=== PATIENT | female | born 2000 | race Caucasian/White ===

== ENCOUNTER 2024-05-15 08:25 | Outpatient (REF) | payer MEDICAID, SELFPAY ==
[2024-05-15 12:45] LABS: Anion Gap 12 (12-20); Blood Urea Nitrogen 12 mg/dL (9-16); Calcium 9.1 mg/dL (8.4-10.2); Carbon Dioxide 26 mmol/L (22-29); Chloride 104 mmol/L (96-108); Cholesterol 187 mg/dL (<200); Estimated Glomerular Filt Rate > 60; Glucose Random 80 mg/dL (60-115); HDL Cholesterol 46 mg/dL (>40); LDL Cholesterol Calculated 124 mg/dL (<100); Potassium 3.2 mmol/L (3.3-5.1); Sodium 139 mmol/L (135-145); Triglycerides 86 mg/dL (<150)
[2024-05-15 12:47] LABS: Estimated Average Glucose 100 mg/dL; Hemoglobin A1c % 5.1 % (<6.0)
[2024-05-15 12:57] LABS: HBS Num1 0.67 mIU/mL (0-7.99); HBc Num1 0.16 S/CO (0.00-0.79); HBsAGNum1 0.32 S/CO (0.00-0.99); HIV AB/AG Nonreactive (Nonreactive); HIV Num 1 0.06 S/CO (0.00-0.99); Hepatitis B Core Antibody Nonreactive (Nonreactive); Hepatitis B Surface Antigen Negative (Negative); ~HepC Num1 0.18 S/CO (0.00-0.79); ~Hepatitis B Surface Antibody NONREACTIVE (Nonreactive); ~Hepatitis C Antibody Nonreactive (Nonreactive)
[2024-05-15 13:17] LABS: TSH reflex Free T4 1.31 uIU/mL (0.32-4.0)
== END 2024-05-15 08:26 | disposition home or self-care (01) ==
LOC: HO.HHCL 08:25
PROVIDERS: Visit Provider Nurse Practitioner
DX: E66.9 Obesity, unspecified (principal); Z13.9 Encounter for screening, unspecified
CPT/HCPCS: 36415; 80048; 80061; 83036; 84443; 86704; 86706; 86803; 87340; 87389

== ENCOUNTER 2024-08-17 17:24 | Emergency (ER) | payer MEDICAID, SELFPAY ==
[2024-08-17 18:11] VITALS: BP 140/84; PULSE 84; RESP 16; TEMP 36.8; O2SAT 100; BMI 43.0
--- NOTE | 2024-08-17 18:22 | ED_ITS ---
HPI - General Adult General Chief complaint: Skin/Abscess/Foreign Body Stated complaint: rt foot swelling Time Seen by Provider: 08/17/24 18:16 Source: patient Limitations: no limitations History of Present Illness ED Provider: Walter Mcclendon PA-C HPI narrative: 23 yold female with no pmh presents to the ED for right middle toe redness that occurred after being bitten by the insect with redness going on top of foot. She states rash is itchy. patient denies any fever, chills, calf pain, chest pain, shortness of breath, pus discharge, foul odor, or orther rash Related Data Previous Rx's ?Medication ?Instructions ?Recorded cephalexin 500 mg capsule 500 mg PO QID 7 days #28 caps 08/17/24 diphenhydramine HCl 25 mg capsule 25 mg PO TID PRN itching 5 days 08/17/24 (Benadryl) #15 caps famotidine 40 mg tablet (Pepcid) 40 mg PO DAILY 5 days #5 tabs 08/17/24 prednisone 20 mg tablet 40 mg (2 x 20 mg) PO DAILY 5 days 08/17/24 #10 tabs Allergies Allergy/AdvReac Type Severity Reaction Status Date / Time Penicillins [PCN] Allergy Mild RASH Verified 08/17/24 18:14 Review of Systems 2 Review of Systems: right middle toe redness to top of right foot. Yes all other systems are reviewed and are negative PMFSH Social History Social History Advance Directives: No Advance Directives Information Provided: No Do you have a plan to hurt others: No Plan Physical Exam ED Vital Signs: Vital Signs - 24 hr 08/17/24 18:11 08/17/24 18:36 Temperature 98.3 F 98.3 F Pulse Rate 84 84 Respiratory Rate 16 16 Blood Pressure 140/84 H 140/84 H Pulse Oximetry 100 100 Oxygen Delivery Method Room Air Room Air BMI result Body Mass Index 43.0 Const General: cooperative, healthy appearing, comfortable, no acute distress, well developed, alert, awake and Physically active Orientation/consciousness: patient oriented x3 HENMT Head: Yes normal to inspection, Yes No palpable skull fracture present, Yes normocephalic and Yes atraumatic Eyes General: appearance normal, both eyes and all related structures Neck Neck: Yes normal visual inspection, Yes full ROM, Yes no lymphadenopathy, Yes no meningeal signs, Yes trachea midline, Yes supple, No anterior neck swelling and No tender Chest Chest palpation & inspection: normal inspection of the chest and normal palpation of entire chest wall Resp Effort & Inspection: normal respiratory effort and able to speak in complete sentences Auscultation: clear to auscultation bilaterally Cardio Jugular venous distension: no JVD Heart sounds: S1 normal heart sound present and S2 normal heart sound present GI Inspection: Yes normal to inspection Palpation (GI): Soft to palpation, not firm, nontender, no guarding and not rigid General: Yes no CVA tenderness Back/Spine/Pelvis Back: no CVA tenderness and No back tenderness Skin General skin exam: no rashes or lesions noted, elasticity normal and turgor normal Neuro General: patient oriented x3, gait normal, tone normal, moves all extremities, Normal light touch and pain sensation, no meningeal signs, no focal motor deficits, CN's II-XI intact bilaterally and normal sensation to monofilament Extrem General: Yes normal to inspection and Yes full ROM Ankle/foot/toe images: 2 1. positive for redness, tenderness, warmth and opening with slight oozing. Rest of extremity. Motor, neuro, and vascular exam is intact. Psych Appearance: grossly normal, well kempt and not disheveled Medical Decision Making Medical Decision Making MDM Narrative: 23-year-old female presents to the ED for right middle toe top of foot redness, itchiness, slight discomfort after being bitten by a bug while sleeping. Rest of extremity normal. Patient denies any leg swelling, calf pain, chest pain, shortness of breath, recent long travel, recent surgery. Physical exam positive for redness from middle toe and small portion of right anterior foot. Positive for bite kimmy/opening. Negative for signs of DVT, osteomylelitits, compartment syndrome, fracture, anyphylaxis, comparment sydnrome, or arterial occlusion. Differential Diagnosis Differential Diagnoses: The differential diagnosis associated with the presentation includes (cellulitits, allergic reaction, contact dermatitis) Admission/Observation Consideration of admission/observation: Escalation of care including admission/observation considered Independent Historian Clinical information obtained from an independent historian. History obtained from or confirmed by: Other (patient) External Record Review External record reviewed: Other (prior visits.) Prescription Management I considered prescription management with: Antibiotic Discharge Plan Discharge Clinical Impression: Insect bite Patient Disposition: Home, Self-Care Instructions: Insect Bite or Sting (ED) Additional Instructions: Return to the ED immediately for any worsening redness, swelling, pus discharge, foul odor, leg swelling, calf pain, chest pain, shortness of breath, fever, chills, swelling of lips, tongue of tongue, sensation of throat closing, or any other concerning symptoms. Prescriptions: New cephalexin 500 mg capsule 500 mg PO QID 7 Days Qty: 28 0RF prednisone 20 mg tablet 40 mg PO DAILY 5 Days Qty: 10 0RF diphenhydramine HCl [Benadryl] 25 mg capsule 25 mg PO TID PRN (Reason: itching) 5 Days Qty: 15 0RF Rx Instructions: side effect is drowsiness famotidine [Pepcid] 40 mg tablet 40 mg PO DAILY 5 Days Qty: 5 0RF Stand Alone Forms: Work/School Release Interventions: ED Discharge Assessment Last Done: 08/17/24 18:36 Discharge Date/Time: 08/17/24 18:38 Print Language: [place]
[2024-08-17 18:36] VITALS: BP 140/84; PULSE 84; RESP 16; TEMP 36.8; O2SAT 100
== END 2024-08-17 18:38 | disposition home or self-care (01) ==
PROVIDERS: Emergency Provider Internal Medicine
DX: R60.0 Localized edema (principal); M79.671 Pain in right foot
CPT/HCPCS: 99282; 99283

== ENCOUNTER 2025-08-01 10:06 | Outpatient (REF) | payer MEDICAID, SELFPAY ==
[2025-08-01 12:11] LABS: Hemoglobin A1C 121.0474 umol/L; Total Hemoglobin (HGBA1C) 3463.3405 umol/L
--- OUTSIDE RECORDS SUMMARY | 2025-08-01 12:17 | XMS_ITS | Encounter Summary ---
Author Organization [facility] Address [address] [place] [id number] Phone Care Team Providers Care Bundle Wrapper Name Role Phone Yanni Murphy MD Primary Care Provider Unavailabl e Encounter Details Date Type Department Care Team (Late st Contact Info) Description 03/12/2016 Documentation [facility] [place] [facility] [address] [place] [address] Family Medicine, Physician [address], [place] [id number] Social History Tobacco Use Types Packs/Day Years Used Date Smoking Tobacco: Never Assessed Comments Unknown Sex and Gender Information Value Date Recorded Sex Assigned at Not on file Legal Sex Female 4:45 PM EDT Gender Identity Not on file Sexual Orientation Not on file documented as of this encounter Plan of Treatment Not on file documented as of this encounter Visit Diagnoses Not on filedocumented in this encounter Care Teams Bundle Wrapper Relationship Specialty Start Date End Date Yanni Murphy MD PCP - General 07/02/17 12/31/22 documented as of this encounter
--- OUTSIDE RECORDS SUMMARY | 2025-08-01 12:17 | XMS_ITS | Encounter Summary ---
Author Organization [facility] Address [address] [place] [phone] Phone Care Team Providers Care Public Relations Sales Marketing Name Role Phone Yanni Murphy MD Primary Care Provider Unavailabl e Encounter Details Date Type Department Care Team (Late st Contact Info) Description 07/08/2017 Conversion Encounter [facility] - [address] [id number] Social History Tobacco Use Types Packs/Day Years Used Date Smoking Tobacco: Never Comments:Never smoker Comments Unknown Sex and Gender Information Value Date Recorded Sex Assigned at Not on file Legal Sex Female 4:45 PM EDT Gender Identity Not on file Sexual Orientation Not on file documented as of this encounter Plan of Treatment Not on file documented as of this encounter Visit Diagnoses Not on filedocumented in this encounter Care Teams Public Relations Sales Marketing Relationship Specialty Start Date End Date Yanni Murphy MD PCP - General 07/02/17 12/31/22 documented as of this encounter
--- OUTSIDE RECORDS SUMMARY | 2025-08-01 12:17 | XMS_ITS | Clinical Summary ---
Author Organization [employer] Address [address] [facility] [address] [place] [address] Care Team Providers Care Tooling Supervisor Name Role Phone Leeanna Wan MD Primary Care Provider [phone] Allergies Active Allergy Reactions Criticality Noted Date Comments Gramineae Pollens 03/16/2024 Penicillins 12/07/2017 Medications * This document contains information received from the source organization and may not represent a complete record from that organization. clobetasol (Temovate) 0.05 % creamIndications:R gloria Apply topically 2 times daily. Once acute flare has subsided use crisaborole for daily maintenance 15 g 2 024 Active Blood Pressure kitIndications:Krista vated BP without diagnosis of hypertension 1 Units Once per day. 1 kit 024 Active tacrolimus (Protopic) 0.1 % ointmentIndication s:Rash Apply topically 2 times daily. 30 g 3 Active levocetirizine (Xyzal) 5 MG tablet Take 1 tablet (5 mg) by mouth in the evening. 90 tablet 3 025 2025 Active fluticasone (Flonase) 50 MCG/ACT nasal sprayIndications:S easonal allergic rhinitis due to pollen SPRAY 1-2 SPRAYS DAILY INTO EACH NOSTRIL 16 g 11 Active busPIRone (Buspar) 5 MG tablet Take 1 tablet (5 mg) by mouth 3 times daily. 90 tablet Active norelgestromin-eth inyl estradiol (Ortho-Evra) 150-35 MCG/24HR Apply 1 patch each week for 3 weeks, then remove for 1 week. 9 patch 025 2025 Active fluticasone (Flonase) 50 MCG/ACT nasal sprayIndications:S easonal allergic rhinitis due to pollen SPRAY 1-2 SPRAYS DAILY INTO EACH NOSTRIL 16 g 11 024 2024 Discontinued(R eorder (will not trigger notification to Pharmacy)) busPIRone (Buspar) 5 MG tablet Take 5 mg by mouth 3 times daily. 2024 Discontinued(R eorder (will not trigger notification to Pharmacy)) levocetirizine (Xyzal) 5 MG tablet Take 1 tablet (5 mg) by mouth in the evening. 30 tablet 11 024 2024 Discontinued(R eorder (will not trigger notification to Pharmacy)) SUMAtriptan (Imitrex) 25 MG tabletIndications: Acute nonintractable headache, unspecified headache type Take 1 tablet (25 mg) by mouth 1 (one) time if needed for migraine for up to 18 doses. May repeat dose once in 2 hours if no relief. Do not exceed 2 doses in 24 hours. Take with naproxen 9 tablet 1 2024 Discontinued(T herapy completed) witch stephie-glycerin (Tucks) padIndications:Acu te gastroenteritis Apply topically if needed for irritation. 100 each 2024 Discontinued(T herapy completed) Vit-Fe Fumarate-FA ( Vitamin) 27-0.8 MG tabletIndications: Routine adult health maintenance TAKE 1 TABLET BY MOUTH EVERY DAY 30 tablet 2 2024 Discontinued(T herapy completed) tacrolimus (Protopic) 0.1 % ointmentIndication s:Rash APPLY TOPICALLY TWICE DAILY 30 g 1 2024 Discontinued(R eorder (will not trigger notification to Pharmacy)) hydrOXYzine HCl (Atarax) 10 MG tabletIndications: Anxiety Take 1 tablet (10 mg) by mouth if needed at bedtime for itching. May take additional pill during the day as needed 30 tablet 2 025 2024 Discontinued(T herapy completed) famotidine (Pepcid) 40 MG tablet TAKE 1 TABLET BY [facility] DAILY FOR 5 DAYS 024 2024 Discontinued(T herapy completed) Active Problems Problem Noted Date Diagnosed Date Acute nonintractable headache 09/20/2024 Assessment & Plan (09/20/2024 10:22 AM EDT): -suggestive of migraine headache; although it could also be due to elevated BP -trial sumatriptan and naproxen for abortive therapy -advised increased Increase fluid intake -Discussed migraines triggers and sleep hygiene, recommended 8-9 h of sleep per night. -headache red flags discussed: report to ED immediately if headache characteristics intensify within 5 mins of onset, if associated with intense nausea and vomiting or confusion -headache diary advised -follow-up in 1 mo or sooner if worsening, vomiting associated with headaches, not improving, problems or concerns Elevated BP without diagnosis of hypertension Assessment & Plan (09/20/2024 10:20 AM EDT): -BP remains elevated in clinic. Informed this may be contributing to her headaches -advised continuous home monitoring specifically at night and bring log to the unit for review -will discuss initiation of low dose diuretic during next visit if office and home readings persistently 130/80 mmHg -stressed the importance of low salt diet and routine daily exercise for BP management -follow-up 1 month Assessment & Plan (08/12/2024 7:46 AM EDT): -BP cuff ordered and log provided for home monitoring -low salt diet and daily physical activity encouraged -follow-up 1 month for BP check Assessment & Plan (06/15/2024 10:40 AM EDT): -advised continued daily monitoring an recording -encouraged low salt diet and daily physical activity -follow-up 2 month in person Rash 05/16/2024 Assessment & Plan (09/20/2024 10:12 AM EDT): -suggestive of eczema; responsive to clobetasol cream -trial maintenance with tacrolimus oint for optimal relief -advised monitoring for triggers and avoid them -maintain adequate moisture of the skin Assessment & Plan (08/12/2024 7:50 AM EDT): -suggestive of atopic dermatitis -trial clobetasol cream for immediate relief -advised monitoring for triggers and avoid them -maintain adequate moisture of the skin Assessment & Plan (06/15/2024 10:38 AM EDT): -advised keep affected areas dry and moisturized -encouraged stress management to decrease flares -trial crisaborole ointment for maintenance -refill for clobetasol provided -follow-up 2 months in person Obesity (BMI 30-39.9) 05/16/2024 Assessment & Plan (09/20/2024 10:12 AM EDT): -1 lb documented weight loss since last office visit 07/27/24 -diet and exercise recommendations reviewed and strongly encouraged -plan to discuss options desire for and options for weight management at next visit -consider nutrition referral Assessment & Plan (08/12/2024 7:46 AM EDT): -Healthy diet and exercise teaching completed: Eat a variety of fruit and vegetables, whole grains such as whole-wheat flour, bulgur (cracked wheat), oatmeal, and brown rice. Intake protein from beans, nuts, fish, and lean meats. Eat low-fat or fat- free dairy products. Limit highly processed foods such as hot dogs, sandwich meat, etc. Engage in minimum of 150 min of moderate intensity exercise weekly -labs ordered to assess for endocrine contribution and resulting metabolic effects Routine adult health maintenance 05/12/2024 Assessment & Plan (09/20/2024 10:12 AM EDT): Multivitamin refill provided per patient request Assessment & Plan (05/12/2024 8:35 AM EDT): -age appropriate screening and immunizations up to date (STI screening) -low cardiovascular risk -mental health screening negative -healthy social behaviors encouraged -anticipatory guidance reviewed: diet, exercise Anxiety 03/16/2024 Assessment & Plan (08/12/2024 7:52 AM EDT): -EMMANUEL-7 Total Score: 4 (07/27/2024 11:02 AM) -start hydroxyzine 10 mg nightly and as needed today televisit -advised on the benefits of engaging in gentle yoga practices, meditation, deep breathing and journaling along with physical activity to aid in symptom improvement -sleep hygiene reviewed Dyslipidemia 10/05/2018 Overview (03/16/2024): 10/04/18 LDL at 123, Chol, HDL wnl, nonfasting, diet changes, repeat in 6m-1yr Eczema 12/20/2017 Overview (03/16/2024): 09/30/17 cerave and vinegar, salt water soaks.Seen in derm Clinic 05/28/17 Clobetasol gel, Triamcinolone Encounters Date Type Department Care Team Description 08/01/2025 2:00 PM EDT Office Visit [facility] MED[facility] [address] [place] [phone] Leeanna Wan MD Screening examination for STI (Primary Dx); Dietary counseling; Exercise counseling; Class 2 obesity without serious comorbidity with body mass index (BMI) of 37.0 to 37.9 in adult, unspecified obesity type; Rash; Seasonal allergic rhinitis due to pollen 07/31/[address] [phone] Leeanna Wan MD Chart Prep 07/31/2025 Travel 06/20/[address] [phone] Leeanna Wan MD Lab Orders from Last 3 Months Immunizations Immunization Administration Dates Next Due DTaP / HiB / IPV 06/03/2003, 2,04/19/2002,02/14 DTaP / Hib 12/18/2005, 3,07/10/2002,04/19,02/14/2002 DTaP, 5 pertussis antigens 12/18/2005,,07/10/2002,04/19,02/14/2002 HPV 9-Valent 06/05/2015 HPV, Quadrivalent 06/05/2015,02/21/2014,12/22/19 14 Hep A, ped/adol, 2 dose 06/05/2015,12/22/2013 Hep B, Adolescent or Pediatric 07/10/2002,2001,2001 Hib (PRP-T) 06/03/2003, 2,04/19/2002,02/14 IPV 12/18/2005, 2,04/19/2002,02/14 Influenza injectable quadriv alent preservative free 10/04/2019,10/04/2018,09/30/2017,07/30,11/01/2013 Influenza, IIV3, injectable 08/12/2009,0 12/17/2005,09/15/2004,11/02 Influenza, Split (incl. allyssa fied surface antigen) 11/03/2012 Influenza, Unspecified 09/30/2017,2014,11/01/2013,11/03,09/11/2010,08/12/2009,12/17/2005 ,09/15/2004,11/02/2003 Influenza, live, intranasal 09/11/2010 Influenza, seasonal, injecta ble, preservative free 10/04/2019,10/04/2018 MMR 12/18/2005,12/28/2002 Meningococcal MCV4P ACYW-135 10/04/2018,06/05/20 15 Novel [id number], all formulations 12/27/2009 Novel [id number], preservative-free 12/27/2009 Pfizer Covid-19 Vaccine 12+ 01/17/2024 Pneumococcal Conjugate PCV 7 05/24/2003, 07/10/2002,04/19/2002,02/14 Tdap 05/12/2024,11/01/2013 Varicella 03/01/2007,12/28/2002 Family History Medical History Relation Name Comments Hyperlipidemia Father Anxiety disorder Mother Relation Name Status Comments Father Mother Social History Tobacco Use Types Packs/Day Years Used Date Smoking Tobacco: Never Passive Smoke Exposure: Never Smokeless Tobacco: Never Tobacco Cessation:Counseling Given: Not Answered Alcohol Answer Date Recorded How often do you have a drink containing alcohol ? 2 05/12/2024 How many drinks containing a lcohol do you have on a typical day when you are drinking? 0 05/12/2024 How often do you have six or more drinks on one occasion? 0 05/12/2024 Depression Answer Date Recorded Patient Health Questionnaire-9 Score 3 05/12/2024 Patient Health Questionnaire-9 Score 3 05/12/2024 Last PHQ-9: Questionnaire Data Not on file 0 05/12/2024 Housing Stability Answer Date Recorded What is your housing situation today? I have wojciech zaragoza 05/12/[address] you li ve. Do you have problems with any of the following? None of the above 05/12/2024 Food Insecurity Answer Date Recorded Within the past 12 months, y ou worried that your food would run out before you got money to buy more: Never True 05/12/2024 Within the past 12 months,th e food you bought just didn't last and you didn't have enough money to get more: Never True Transportation Answer Date Recorded In the past 12 months, has l ack of transportation kept you from medical appts, meetings, work or from getting things needed for daily living? No 05/12/2024 Utilities Answer Date Recorded In the past 12 months, has t he electric, gas, oil or water company threatened to shut off services in your home? No 05/12/2024 Depression Answer Date Recorded Patient Health Questionnaire-2 Score 0 08/01/2025 Internet Access Answer Date Recorded Internet Access Q1 Yes 09/20/2024 Internet Access Q2 Not on file 09/20/2024 Comments Unknown Sex and Gender Information Value Date Recorded Sex Assigned at Female 01/17/2024 1:10 PM EST Legal Sex Female 1:09 PM EST Gender Identity Female 01/17/2024 1:10 PM EST Sexual Orientation Straight 01/17/2024 1: 10 PM EST Last Filed Vital Signs Vital Sign Reading Time Taken Comments Blood Pressure 130/89 08/01/2025 9:37 AM EDT Pulse 79 08/01/2025 9:37 AM EDT Temperature 37 C (98.6 F) 08/01/2025 9:37 AM EDT Respiratory Rate 16 08/01/2025 9:37 AM EDT Oxygen Saturation 99% 08/01/2025 9:37 AM EDT Inhaled Oxygen Concentration - - Weight 92.2 kg (203 lb 3.2 oz) 08/01/2025 9:37 A M EDT Height 162.6 cm (5' 4 ) 08/01/2025 9:37 AM EDT Body Mass Index 34.88 08/01/2025 9:37 AM EDT Plan of Treatment Upcoming Encounters Date Type Department Care Team (Late st Contact Info) Description 08/01/2025 2:00 PM EDT Office Visit [facility] MEDICINE [address], [place] [phone] Leeanna Wan MD [address] [place], [place] [phone] Screening examination for STI (Primary Dx); Dietary counseling; Exercise counseling; Class 2 obesity without serious comorbidity with body mass index (BMI) of 37.0 to 37.9 in adult, unspecified obesity type; Rash; Seasonal allergic rhinitis due to pollen Health Maintenance Due Date Last Done Comments Chlamydia and Gonorrhea Screening 2001 Family Planning (PISQ) 2016 Meningococcal B Vaccine (1 of 2 - Standard) 2017 Pap Smear 2022 COVID-19 Vaccine (2 - season) 2025 01/17/2024 Influenza Vaccine (#1) 2025 , 10/04/2019, 10/04/2018, Additional history exists SDOH Screening 09/20/2025 09/20/2024 Disability Screening 07/31/2026 07/31/2025 Alcohol/Substance Use Screening 08/01/2026 08/01/2025 Depression Screening 08/01/2026 08/01/2025, 05/12/20 Tobacco Screening 08/01/2026 08/01/2025 Lipid Panel 05/15/2029 05/15/2024 DTaP/Tdap/Td Vaccines (8 - Td or Tdap) 05/12/2034 05/12/2024, 11/01/2013, 12/18/2005, Additional history exists Zoster Vaccines (1 of 2) 2051 RSV Patients and Patients Aged 60 years or older (1 - 1-dose 75+ series) 2076 Hepatitis B Vaccines Completed 07/10/2002, 01/12/2002, 2001 Pneumococcal Vaccine: Pediatrics (0 to 5 Years) and At-Risk Patients (6 to 49) Years Aged Out 05/24/2003, 07/10/2002, 04/19/2002, Additional history exists No longer eligible based on patient's age to complete this topic HIB Vaccines Completed 12/18/2005, 02/2003, 06/03/2003, Additional history exists IPV Vaccines Completed 12/18/2005, 05/22, 09/12/2002, Additional history exists HPV Vaccines Completed 06/05/2015, 05/22, 02/21/2014, Additional history exists Hepatitis A Vaccines Completed 06/05/2015, 12/22/19 14 Meningococcal Vaccine Completed 10/04/2018, 015 HIV Screening Completed 05/15/2024 Hepatitis C Screening Completed 05/15/2024 RSV under 20 months Aged Out No longe r eligible based on patient's age to complete this topic Rotavirus Vaccines Aged Out No longer eligible based on patient's age to complete this topic Procedures Procedure Name Priority Date/Time Associated Diagnosis Comments HEMOGLOBIN A1C Routine 08/01/2025 10:15 AM EDT Class 2 obesity without serious comorbidity with body mass index (BMI) of 37.0 to 37.9 in adult, unspecified obesity type HEPATITIS C AB W/REFL TO HCV RNA, QN, PCR Routine 05/15/2024 8:32 AM EDT Encounter for health-related screening HIV 1/2 ANTIGEN/ANTIBODY, FOURTH GENERATION W/RFL Routine 05/15/2024 8:32 AM EDT Encounter for health-related screening LIPID PANEL, STANDARD Routine 05/15/2024 8:32 AM EDT Obesity (BMI 30-39.9) from Last 3 Months or Most Recently Relevant to Health Maintenance Results * Hemoglobin A1c (08/01/2025 10:15 AM EDT) Hemoglobin A1c 5.3 <6.0 % [facility] Comment:Hemoglobin A1C Refer ence Range Adults: 4.8 - 6.0 % Non diabetic: < 6.0 % Goal: < 7.0 %Additional Action Suggested: > 8.0 %Note: Hemoglobin A1c results are invalid for patients with abnormal amounts of HbF. Blood transfusions may impact the HbA1c concentration in the patient sample. Estimated Average Glucose 105 mg/dL [facility] Comment:eAG = Estimated ave rage glucose which is %A1C expressed asaverage glucose, using the formula of the M3S-WmkluqoHepppjp Glucose study (ADAG), Diabetes Care, Vol.31,#8,Jun. 2007 Blood Venous blood specimen / Unknown 08/01/2025 10:15 AM EDT 08/01/2025 11:54 AM EDT us Leeanna Wan MD LAB BLOOD ORDERABLES Final Res ult Performing Organization Address [facility]/ZIP Co de Phone Number [facility] [address] [place] [phone] * Hepatitis C Antibody with Reflex to HCV, RNA, Quantitative, Real-Time PCR (05/15/2024 8:32 AM EDT) Hepatitis C Antibody Nonreactive Nonreactive [facility] Comment:Antibodies to HCV no t detected; does not exclude early acuteHCV infection. Blood Venous blood specimen / Unknown 05/15/2024 8:32 AM EDT 05/15/2024 12:13 PM EDT us Susy Rodriguez NP LAB BLOOD ORDERABLES Final Resu lt Performing Organization Address [facility]/ZIP Co de Phone Number [facility] [address] [place] [address] [phone] * HIV-1/2 Antigen and Antibodies, Fourth Generation, with Reflexes (05/15/2024 8:32 AM EDT) HIV AB/AG Nonreactive Nonreactive [facility] Comment:HIV-1 p24 Ag and/or HIV-1/HIV-2 Ab not detected.A test result that is nonreactive does not exclude thepossibility of exposure to or infection with HIV-1 and/orHIV-2. Nonreactive results in this assay for individualswith prior exposure to HIV-1 and/or HIV-2 may be due toantigen and antibody levels that are below the limit ofdetection of this assay.The [employer] HIV Ag/Ab Combo assay result andsupplemental assay results should be interpreted inconjunction with the patient's clinical presentation,history and other laboratory results. If the results areinconsistent with clinical evidence, additional testing issuggested to confirm the result. Blood Venous blood specimen / Unknown 05/15/2024 8:32 AM EDT 05/15/2024 12:13 PM EDT us Susy Rodriguez LIGHT ARMORED VEHICLE OFFICER LAB BLOOD ORDERABLES Final Resu lt [facility] [address] [place] [phone] [phone] * (ABNORMAL) Lipid Panel, Standard (05/15/2024 8:32 AM EDT) Triglycerides 86 <150 mg/dL [facility] Comment:Desirable Triglyceri de: less than 150 mg/dLBorderline High Triglyceride 150-199 mg/dLHigh Triglyceride: 200-499 mg/dLVery High Triglyceride: greater than or equal to 5OO mg/dL Cholesterol 187 <200 mg/dL [facility] Comment:Desirable Cholestero l: less than 200 mg/dLBorderline High Cholesterol: 200-239 mg/dLHigh Cholesterol: greater than 239 mg/dL LDL Cholesterol Calculated 124(H) <100 mg/dL [facility] Comment:Desirable LDL: less than 100 mg/dLNear Optimal/Above Optimal LDL: 110- 129 mg/dLBorderline High LDL: 130-159 mg/dLHigh LDL: 160-189 mg/dLVery High LDL: greater than or equal to 190 mg/dL HDL Cholesterol 46 >40 mg/dL [facility] Comment:Desirable HDL: great er than 40 mg/dL Note: This HDL assay may give artificially low results in patients with liver disease. Blood Venous blood specimen / Unknown 05/15/2024 8:32 AM EDT 05/15/2024 12:13 PM EDT Susy Vinnieshelley LIGHT ARMORED VEHICLE OFFICER LAB BLOOD ORDERABLES Final Resu lt [facility] [address] [place] [address] [phone] from Last 3 Months or Most Recently Relevant to Health Maintenance Insurance [facility] C3 Care Teams Tooling Supervisor Relationship Specialty Start Date End Date Leeanna Wan MD [address] [place] [phone] PCP - General Family Medicine 05/15/25
--- OUTSIDE RECORDS SUMMARY | 2025-08-01 12:17 | XMS_ITS | Encounter Summary ---
Author Organization [facility] Address [address] [place] [phone] Phone Care Team Providers Care Development Manager Name Role Phone Yanni Murphy MD Primary Care Provider Unavailabl e Encounter Details Date Type Department Care Team (Late st Contact Info) Description 07/13/2016 Documentation [facility] Family Medicine [address] [place] [address] Family Medicine, Physician [address], [place] [phone] Social History Tobacco Use Types Packs/Day Years [...] on filedocumented in this encounter Care Teams Development Manager Relationship Specialty Start Date End Date Yanni Murphy MD PCP - General 07/02/17 12/31/22 documented as of this encounter
--- OUTSIDE RECORDS SUMMARY | 2025-08-01 12:17 | XMS_ITS | Encounter Summary ---
Author Organization [facility] Address [address] [place] [phone] Phone Care Team Providers Care Gasoline Pump Installer Name Role Phone Yanni Murphy MD Primary Care Provider Unavailabl e Encounter Details Date Type Department Care Team (Late st Contact Info) Description 08/27/2016 Documentation [facility] Family Medicine [address] [place] [address] Family Medicine, Physician [address] [place], [place] [phone] Social History Tobacco Use Types Packs/Day Years [...] on filedocumented in this encounter Care Teams Gasoline Pump Installer Relationship Specialty Start Date End Date Yanni Murphy MD PCP - General 07/02/17 12/31/22 documented as of this encounter
--- OUTSIDE RECORDS SUMMARY | 2025-08-01 12:17 | XMS_ITS | Encounter Summary ---
Author Organization [employer] Address [address] [facility] [address]t [place] [address] Care Team Providers Care Evaporator Supervisor Name Role Phone Leeanna Wan MD Primary Care Provider [phone] Reason for Visit * Reason Onset Date Comments Chart Prep 07/31/2025 Encounter Details Date Type Department Care Team ([facility] [place] [facility] st Contact Info) Description 07/31/2025 Telephone [facility] [address], [place] [phone] Leeanna Wan MD [address] [place], [place] [phone] Chart Prep Social History Tobacco Use Types Packs/Day Years Used Date Smoking Tobacco: Never Passive Smoke Exposure: Never Smokeless Tobacco: Never Alcohol Answer Date Recorded How often do [...] Orientation Straight 01/17/2024 1: 10 PM EST documented as of this encounter Miscellaneous Notes * Telephone Encounter - Trish Venegas [place] - 07/31/2025 2:23 PM EDT Chart Prep Labs: not applicable Images: not applicable Referrals: not applicable Vaccines due: Covid, Flu, and MCV4 Screenings: pap smear, STI screening, and LMP Overdue care gaps: SBIRT, PHQ-9, EMMANUEL-7, and Oral health screening documented in this encounter Plan of Treatment Upcoming Encounters Date Type Department Care Team (Late st Contact Info) Description 08/01/2025 2:00 PM EDT Office Visit [facility] [address] [place] [address] Leeanna Wan MD [address] [place] [phone] Screening examination for STI (Primary Dx); Dietary counseling; Exercise counseling; Class 2 obesity without serious comorbidity with body mass index (BMI) of 37.0 to 37.9 in adult, unspecified obesity type; Rash; Seasonal allergic rhinitis due to pollen documented as of this encounter Visit Diagnoses Not on filedocumented in this encounter Additional Health Concerns Assessment Noted Time PHQ-9 Depression Total Score: 3 05/12/20 24 11:38 AM EDT documented as of this encounter Care Teams Evaporator Supervisor Relationship Specialty Start Date End Date Leeanna Wan MD [address] [place] [address] PCP - General Family Medicine 05/15/25 documented as of this encounter
--- OUTSIDE RECORDS SUMMARY | 2025-08-01 12:17 | XMS_ITS | Encounter Summary ---
Author Organization [facility] Address [address] [place] [phone] Phone Care Team Providers Care Airplane Tube Builder Name Role Phone Yanni Murphy MD Primary Care Provider Unavailabl e Encounter Details Date Type Department Care Team (Late st Contact Info) Description 10/09/2013 Documentation [facility] [place] [address] [place] [address] Family Medicine, Physician [address] [phone] Social History Tobacco Use Types Packs/Day Years [...] on filedocumented in this encounter Care Teams Airplane Tube Builder Relationship Specialty Start Date End Date Yanni Murphy MD PCP - General 07/02/17 12/31/22 documented as of this encounter
--- OUTSIDE RECORDS SUMMARY | 2025-08-01 12:17 | XMS_ITS | Encounter Summary ---
Author Organization [employer] Address [address] [facility] 7t [place] [address] Care Team Providers Care Rooming House Operator Name Role Phone Susy Rodriguez NP Primary Care Provider [phone] Leeanna Wan MD Primary Care Provider [phone] Encounter Details Date Type Department Care Team (Late st Contact Info) Description 12/28/2024 Orders Only [facility] [address] [place] [address] Susy Rodriguez NP [address] [place] [address] Social History Tobacco Use Types Packs/Day Years [...] Date Recorded Patient Health Questionnaire-2 Score 0 05/12/2024 Internet Access Answer Date Recorded Internet Access Q1 Yes 09/20/2024 Internet Access Q2 Not on file 09/20/2024 Comments Unknown Sex and Gender Information Value Date Recorded Sex Assigned at Female 01/17/2024 1:10 PM EST Legal Sex Female 1:09 PM EST Gender Identity Female 01/17/2024 1:10 PM EST Sexual Orientation Straight 01/17/2024 1: 10 PM EST documented as of this encounter Plan of Treatment Upcoming Encounters Date Type Department Care Team (Late st Contact Info) Description 08/01/2025 2:00 PM EDT Office Visit [facility] [address] [place] [phone] Leeanna Wan MD [address] [place] [address] [phone] Screening examination for STI (Primary Dx); Dietary [...] documented as of this encounter Care Teams Rooming House Operator Relationship Specialty Start Date End Date Susy Rodriguez NP [address] [place] [address] [phone] PCP - General Family Medicine 05/11/24 05/14/25 Leeanna Wan MD [address] [place] [address] [phone] PCP - General Family Medicine 05/15/25 documented as of this encounter
--- OUTSIDE RECORDS SUMMARY | 2025-08-01 12:17 | XMS_ITS | Encounter Summary ---
Author Organization [facility] Address [address] [place] [phone] Phone Care Team Providers Care Emergency Room Registered Nurse Name Role Phone Yanni Murphy MD Primary Care Provider Unavailabl e Encounter Details Date Type Department Care Team (Late st Contact Info) Description 06/22/[address] [facility] [place] Family Medicine [address] [place] [address] Family Medicine, Physician [address] [place], [place] 344481 Social History Tobacco Use Types Packs/Day Years [...] on filedocumented in this encounter Care Teams Emergency Room Registered Nurse Relationship Specialty Start Date End Date Yanni Murphy MD PCP - General 07/02/17 12/31/22 documented as of this encounter
--- OUTSIDE RECORDS SUMMARY | 2025-08-01 12:17 | XMS_ITS | Encounter Summary ---
Author Organization [facility] Address [address] [place] [address] Phone Care Team Providers Care Commercial Construction Project Manager Name Role Phone Yanni Murphy MD Primary Care Provider Unavailabl e Encounter Details Date Type Department Care Team (Late st Contact Info) Description 03/17/[address] [facility] [place] Family Medicine [address] [place] [address] Family Medicine, Physician [address] [place], [place] [phone] Social History Tobacco Use Types Packs/Day Years [...] on filedocumented in this encounter Care Teams Commercial Construction Project Manager Relationship Specialty Start Date End Date Yanni Murphy MD PCP - General 07/02/17 12/31/22 documented as of this encounter
--- OUTSIDE RECORDS SUMMARY | 2025-08-01 12:17 | XMS_ITS | Clinical Summary ---
Author Organization [facility] Address [address] [place] [phone] Phone Care Team Providers Care Public Health Veterinarian Name Role Phone Unavailable Primary Care Provider Unavailabl e Allergies Active Allergy Reactions Criticality Noted Date Comments Penicillin G Medications clobetasol 0.05 % gel CLOBETASOL PROPIONATE; apply by topical route 2 times every day a thin layer to the affected area(s); 0.05 %; 05/28/2017; Active 7 Active naphazoline-phe niramine (EYE ALLERGY RELIEF) 0.025-0.3 % ophthalmic solution EYE ALLERGY RELIEF; 0.025 %-0.3 %; 03/23/2017; Active 7 Active ibuprofen 600 MG tablet Take 600 mg by mouth every 8 (eight) hours as needed. for pain 0 7 Active Immunizations Immunization Administration Dates Next Due DTaP 5 12/18/2005, 3,07/10/2002,04/19,02/14/2002 H1N1 12/27/2009 HPV Vaccine 9 Valent 06/05/2015 HPV, Quadrivalent 02/21/2014,12/22/2013 Hep A, ped/adol 06/05/2015,12/22/2013 Hep B, ped/adol 07/10/2002,01/12/2002,2001 Hib (PRP-T) 06/03/2003, 2,04/19/2002,02/14 IPV 12/18/2005, 2,04/19/2002,02/14 Influenza Split 11/03/2012 Influenza, injectable, quadr ivalent, preservative free 09/30/2017,07/30/2015,11/01/2013 Influenza, injectable, trivalent 009,12/17/2005,09/15/2004,11/02 Influenza, intranasal, trivalent 09/11/2010 MMR 12/18/2005,12/28/2002 Meningococcal Conj (Menactra) MCV4P 06/05/2015 Pneumococcal Conjugate 05/24/2003,2001,04/19/2002,02/14 Tdap 11/01/2013 Varicella 03/01/2007,12/28/2002 Family History Medical History Relation Name Comments No Known Problems Brother Miranda Hyperlipidemia Father Keaton Diabetes Maternal Grandmother No Known Problems Mother Shazia Hyperlipidemia Paternal Grandmother No Known Problems Sister 1 Edin No Known Problems Sister 2 Carlos Relation Name Status Comments Brother Miranda Alive Brother: Alive and well Father Keaton Alive Father: Alive a nd well, Migraines Maternal Grandfather Alive Maternal Grandmother Alive Materna l aunt: Migraines Mother Shazia Alive Mother: Alive a nd well Other Family history of *Sudden /[place] under 55, Family history of Hyperlipidemia, Family history of *Dental caries, No family history of *CVA/Stroke, No family history of *Heart Disease Paternal Grandmother Alive Sister 1 Edin Alive Sister: Alive a nd well Sister 2 Carlos Alive Social History Tobacco Use Types Packs/Day Years Used Date Smoking Tobacco: Never Smokeless Tobacco: Never Comments:Never smoker Comments No Sex and Gender Information Value Date Recorded Sex Assigned at Not on file Legal Sex Female 4:45 PM EDT Gender Identity Not on file Sexual Orientation Not on file Last Filed Vital Signs Vital Sign Reading Time Taken Comments Blood Pressure 121/82 09/30/2017 1:24 PM EST Pulse 63 09/30/2017 1:24 PM EST Temperature 36.4 C (97.5 F) 09/30/2017 1:24 PM EST Respiratory Rate - - Oxygen Saturation - - Inhaled Oxygen Concentration - - Weight 68.3 kg (150 lb 9.6 oz) 09/30/2017 1:24 P M EST Height 161.9 cm (5' 3.75 ) 09/30/2017 1:24 PM ES T Body Mass Index 26.05 09/30/2017 1:24 PM EST Plan of Treatment Health Maintenance Due Date Last Done Comments Men B Vaccine (1 of 2 - Standard) 2017 DTaP,Tdap,and Td Vaccines (7 - Td or Tdap) 11/01/2023 11/01/2013, 12/18/2005, 07/26/2003, Additional history exists Influenza Vaccines (#1) 2025 09/30/20 17, 07/30/2015, 11/01/2013, Additional history exists COVID-19 Vaccine ( season) 2025 Hepatitis B Vaccines Completed 07/10/2002, 01/12/2002, 2001 Pneumococcal Vaccine Completed 05/24/2003, 07/10/2002, 04/19/2002, Additional history exists HIB Vaccines Completed 06/03/2003, 06/22, 04/19/2002, Additional history exists IPV Vaccines Completed 12/18/2005, 08/23, 04/19/2002, Additional history exists MMR Vaccines Completed 12/18/2005, 12/28/2002 Varicella Vaccines Completed 03/01/2007, 12/28/2002 HPV Vaccines Completed 06/05/2015, 12/2013, 12/22/2013 Hepatitis A Vaccines Completed 06/05/2015, 12/22/19 14 Meningococcal Vaccine Aged Out 06/05/2015 No lauren keya eligible based on patient's age to complete this topic Insurance [facility] MED[facility] NON [facility]
--- OUTSIDE RECORDS SUMMARY | 2025-08-01 12:17 | XMS_ITS | Encounter Summary ---
Author Organization [employer] Address [address] [facility] 7t [place] [address] Care Team Providers Care Dancer Or Choreographer Name Role Phone Susy Rodriguez NP Primary Care Provider [phone] Leeanna Wan MD Primary Care Provider [phone] Reason for Visit * Reason Comments Med Change Request Encounter Details Date Type Department Care Team ([facility] st Contact Info) Description 05/12/2024 Refill [facility] [address] [place] [address] Susy Rodriguez NP [address] [place] [address] Elevated BP without diagnosis of hypertension Social History Tobacco Use Types Packs/Day Years [...] Recorded Patient Health Questionnaire-2 Score 0 05/12/2024 Comments Unknown Sex and Gender Information Value Date Recorded Sex Assigned at Female 01/17/2024 1:10 PM EST Legal Sex Female 1:09 PM EST Gender Identity Female 01/17/2024 1:10 PM EST Sexual Orientation Straight 01/17/2024 1: 10 PM EST documented as of this encounter Functional Status * Over the past 2 weeks, how often have you been bothered by any of the following problems? Question Answer Date of Assessment Author Patient Health Questionnaire -2 Score 0 05/12/2024 11:38 AM Adriana Peña MA * If you checked off any problems on this questionnaire so far, Question Answer Date of Assessment Author How difficult have these problems made it for you to do your work, take care of things at home, or get along with other people? Somewhat difficult 05/12/2024 11:38 AM Adriana Peña MA * Over the last 2 weeks, how often have you been bothered by any of the following problems? Question Answer Date of Assessment Author Feeling nervous, anxious, or on edge 1 05/12/2024 11:38 AM Adriana Peña MA Not being able to stop or co ntrol worrying 1 05/12/2024 11:38 AM Adriana Peña MA Worrying too much about diff erent things 1 05/12/2024 11:38 AM Adriana Peña MA Trouble relaxing 0 05/12/2024 11:38 AM Adriana Peña MA Being so restless that it is hard to sit still 0 05/12/2024 11:38 AM Adriana Peña MA Becoming easily annoyed or irritable 0 05/12/2024 11:38 AM Adriana Peña MA Feeling afraid as if somethi ng awful might happen 0 05/12/2024 11:38 AM Adriana Peña MA EMMANUEL-7 Total Score 3 05/12/2024 11:38 AM Adriana Peña MA * Over the past 2 weeks, how often have you been bothered by any of the following problems? Question Answer Date of Assessment Author Little interest or pleasure in doing things Not at all 05/12/2024 11:38 AM Adriana Peña MA Feeling down, depressed, or hopeless Not at all 05/12/2024 11:38 AM Adriana Peña MA Trouble falling or staying asleep, or sleeping too much Several days 05/12/2024 11:38 AM Adriana Peña MA Feeling tired or having little energy Several days 05/12/2024 11:38 AM Adriana Peña MA Poor appetite or overeating Several days 05/12/2024 11 :38 AM Adriana Peña MA Feeling bad about yourself - or that you are a failure or have let yourself or your family down Not at all 05/12/2024 11:38 AM Adriana Peña MA Trouble concentrating on things, such as reading the newspaper or watching television Not at all 05/12/2024 11:38 AM Adriana Peña MA Moving or speaking so slowly that other people could have noticed? Or the opposite - being so fidgety or restless that you have been moving around a lot more than usual. Not at all 05/12/2024 11:38 AM Adriana Peña MA Thoughts that you would be better off or hurting yourself in some way Not at all 05/12/2024 11:38 AM Andres Peña MA Patient Health Questionnaire-9 Score 3 05/12/2024 11:38 AM Estrella Peña MA documented as of this encounter Miscellaneous Notes * Telephone Encounter - Dominga Marcial - 05/15/2024 10:24 AM EDT DME Rx for Blood pressure monitor generated and placed on PCP desk for review and signature. Once signed will fax to [facility] and scan into chart under media. documented in this encounter Plan of Treatment Upcoming Encounters Date Type Department Care Team (Late st Contact Info) Description 08/01/2025 2:00 PM EDT Office Visit [facility] [address] [place] [phone] Leeanna Wan MD [address] [place] [address] Screening examination for STI (Primary Dx); Dietary counseling; Exercise counseling; Class 2 obesity without serious comorbidity with body mass index (BMI) of 37.0 to 37.9 in adult, unspecified obesity type; Rash; Seasonal allergic rhinitis due to pollen documented as of this encounter Visit Diagnoses Diagnosis Elevated BP without diagnosis of hypertension Screening examination for STI- Primary Dietary counseling Dietary surveillance and counseling Exercise counseling Class 2 obesity without serious comorbidity with body mass index (BMI) of 37.0 to 37.9 in adult, unspecified obesity type Rash Rash and other nonspecific skin eruption Seasonal allergic rhinitis due to pollen documented in this encounter Additional Health Concerns Assessment Noted Time PHQ-9 Depression Total Score: 3 05/12/20 24 11:38 AM EDT documented as of this encounter Care Teams Dancer Or Choreographer Relationship Specialty Start Date End Date Susy Rodriguez NP [address] [place] [phone] PCP - General Family Medicine 05/11/24 05/14/25 Leeanna Wan MD [address] [place] [phone] PCP - General Family Medicine 05/15/25 documented as of this encounter
--- OUTSIDE RECORDS SUMMARY | 2025-08-01 12:17 | XMS_ITS | Encounter Summary ---
Author Organization [employer] Address [address] [facility] 7t [place] [address] Care Team Providers Care Product Development Ecologist Name Role Phone Leeanna Wan MD Primary Care Provider [phone] Encounter Details Date Type Department Care Team (Latest Contact Info) Description 07/31/2025 Travel Social History Tobacco Use Types Packs/Day Years [...] is your housing situation today? I have wojciechaurora zaragoza 05/12/[address] you [...] the past 12 months, has t he [employer], gas, oil or water [employer] threatened to shut off services in your [...] Description 08/01/2025 2:00 PM EDT Office Visit [facility] [address] [place] [address] [phone] Leeanna Wan MD [address] [place] [phone] Screening examination for STI (Primary Dx); Dietary [...] documented as of this encounter Care Teams Product Development Ecologist Relationship Specialty Start Date End Date Leeanna Wan MD [address] [place] [address] [phone] PCP - General Family Medicine 05/15/25 documented as of this encounter
--- OUTSIDE RECORDS SUMMARY | 2025-08-01 12:17 | XMS_ITS | Encounter Summary ---
Author Organization [facility] Address [address] [place] [phone] Phone Care Team Providers Care Manager Ecommerce Name Role Phone Yanni Murphy MD Primary Care Provider Unavailabl e Encounter Details Date Type Department Care Team (Late st Contact Info) Description 08/26/2016 Documentation [facility] [place] [address] [place] [address] Family Medicine, Physician [address] [place], [place] 196641 Social History Tobacco Use Types Packs/Day Years [...] on filedocumented in this encounter Care Teams Manager Ecommerce Relationship Specialty Start Date End Date Yanni Murphy MD PCP - General 07/02/17 12/31/22 documented as of this encounter
[2025-08-01 12:53] LABS: Alanine Aminotransferase 18 U/L (0-31); Albumin Level 4.3 g/dL (3.5-5.0); Alkaline Phosphatase 73 U/L (39-117); Anion Gap 11 (12-20); Aspartate Amino Transferase 27 U/L (5-31); Blood Urea Nitrogen 9 mg/dL (9-16); Calcium 9.0 mg/dL (8.4-10.2); Carbon Dioxide 26 mmol/L (22-29); Chloride 105 mmol/L (96-108); Cholesterol 182 mg/dL (<200); Estimated Glomerular Filt Rate > 60; HDL Cholesterol 49 mg/dL (>40); Potassium 3.9 mmol/L (3.3-5.1); Sodium 138 mmol/L (135-145); Total Protein 8.2 g/dL (6.5-8.0); Triglycerides 64 mg/dL (<150)
[2025-08-01 13:15] LABS: HIV Num 1 0.08 S/CO (0.00-0.99); ~HepC Num1 0.12 S/CO (0.00-0.79); ~Hepatitis C Antibody Nonreactive (Nonreactive)
--- OUTSIDE RECORDS SUMMARY | 2025-08-01 14:00 | XMS_ITS | Encounter Summary ---
Author Organization [employer] Address [address] [facility] 7t [place] [address] Care Team Providers Care Pipe Racker Name Role Phone Leeanna Wan MD Primary Care Provider [phone] Encounter Details Date Type Department Care Team (Late st Contact Info) Description 08/01/2025 2:00 PM EDT Office Visit [facility] [address] [place] [address] Leeanna Wan MD [address] [place] [address] Screening examination for STI (Primary Dx); Dietary counseling; Exercise counseling; Class 2 obesity without serious comorbidity with body mass index (BMI) of 37.0 to 37.9 in adult, unspecified obesity type; Rash; Seasonal allergic rhinitis due to pollen Social History Tobacco Use Types Packs/Day Years [...] PM EST documented as of this encounter Last Filed Vital Signs Vital Sign Reading [...] Mass Index 34.88 08/01/2025 9:37 AM EDT documented in this encounter Functional Status * Over the past 2 weeks, how often have you been bothered by any of the following problems? Question Answer Date of Assessment Author Patient Health Questionnaire -2 Score 0 08/01/2025 9:37 AM EDT Maverick Connolly MA * Little interest or pleasure in doing things Answer Date of Assessment Author Not at all 08/01/2025 9:37 AM Cedrick Watkins MA * Feeling down, depressed, or hopeless Answer Date of Assessment Author Not at all 08/01/2025 9:37 AM Cedrick Watkins MA * Trouble falling or staying asleep, or sleeping too much Answer Date of Assessment Author Several days 08/01/2025 9:37 AM Cedrick Watkins MA * Feeling tired or having little energy Answer Date of Assessment Author Several days 08/01/2025 9:37 AM Cedrick Watkins MA * Feeling bad about yourself - or that you are a failure or have let yourself or your family down Answer Date of Assessment Author Several days 08/01/2025 9:37 AM Cedrick Watkins MA * Trouble concentrating on things, such as reading the newspaper or watching television Answer Date of Assessment Author Not at all 08/01/2025 9:37 AM Cedrick Watkins MA * Moving or speaking so slowly that other people could have noticed? Or the opposite - being so fidgety or restless that you have been moving around a lot more than usual. Answer Date of Assessment Author Not at all 08/01/2025 9:37 AM Cedrick Watkins MA * Thoughts that you would be better off or hurting yourself in some way Answer Date of Assessment Author Not at all 08/01/2025 9:37 AM Cedrick Watkins MA * Over the last 2 weeks, how often have you been bothered by any of the following problems? Question Answer Date of Assessment Author Feeling nervous, anxious, or on edge 1 08/01/2025 9:38 AM Maverick Watkins MA Not being able to stop or co ntrol worrying 1 08/01/2025 9:38 AM Maverick Watkins MA Worrying too much about diff erent things 0 08/01/2025 9:38 AM Maverick Watkins MA Trouble relaxing 0 08/01/2025 9:38 AM Maverick Fermin MA Being so restless that it is hard to sit still 0 08/01/2025 9:38 AM EDT Maverick Connolly MA Becoming easily annoyed or irritable 0 08/01/2025 9:38 AM EDT Maverick Connolly MA Feeling afraid as if somethi ng awful might happen 0 08/01/2025 9:38 AM EDT Maverick Connolly MA EMMANUEL-7 Total Score 2 08/01/2025 9:38 AM EDT Maverick Connolly MA documented as of this encounter Plan of Treatment Scheduled Orders Name Type Priority Associated Diagnoses Orde r Schedule Comprehensive Metabolic Panel Lab Routine Class 2 obesity without serious comorbidity with body mass index (BMI) of 37.0 to 37.9 in adult, unspecified obesity type Expected: 08/01/2025 (Approximate), Expires: 08/01/2026 Lipid Panel, Standard Lab Routine Class 2 obesity without serious comorbidity with body mass index (BMI) of 37.0 to 37.9 in adult, unspecified obesity type Expected: 08/01/2025 (Approximate), Expires: 08/01/2026 Hepatitis C Antibody with Reflex to HCV, RNA, Quantitative, Real-Time PCR Lab Routine Screening examination for STI Expected: 08/01/2025, Expires: 08/01/2026 HIV-1/2 Antigen and Antibodies, Fourth Generation, with Reflexes Lab Routine Screening examination for STI Expected: 08/01/2025 (Approximate), Expires: 08/01/2026 RPR (Monitor) with Reflex to Titer Lab Routine Screening examination for STI Expected: 08/01/2025, Expires: 08/01/2026 Chlamydia/N. Gonorrhoeae RNA, TMA, Urogenitial Microbiology Routine Screening examination for STI Expected: 08/01/2025 (Approximate), Expires: 08/01/2026 documented as of this encounter Procedures Procedure Name Priority Date/Time Associated Diagnosis Comments HEMOGLOBIN A1C Routine 08/01/2025 10:15 AM EDT Class 2 obesity without serious comorbidity with body mass index (BMI) of 37.0 to 37.9 in adult, unspecified obesity type documented in this encounter Results * Hemoglobin A1c (08/01/2025 10:15 AM EDT) Hemoglobin A1c 5.3 <6.0 % [facility] Comment:Hemoglobin A1C Refer ence Range Adults: 4.8 - 6.0 % Non diabetic: < 6.0 % Goal: < 7.0 %Additional Action Suggested: > 8.0 %Note: Hemoglobin A1c results are invalid for patients with abnormal amounts of HbF. Blood transfusions may impact the HbA1c concentration in the patient sample. Estimated Average Glucose 105 mg/dL [facility] Comment:eAG = Estimated ave rage glucose which is %A1C expressed asaverage glucose, using the formula of the [id number]-ZyzxkqtXhwsuna Glucose study (ADAG), Diabetes Care, Vol.31,#8,Jun. 2007 Blood Venous blood specimen / Unknown 08/01/2025 10:15 AM EDT 08/01/2025 11:54 AM EDT us Leeanna Wan MD LAB BLOOD ORDERABLES Final Res ult [facility] [address] [place] [address] [phone] documented in this encounter Visit Diagnoses Diagnosis Screening examination for STI- Primary Dietary counseling [...] documented as of this encounter Care Teams Pipe Racker Relationship Specialty Start Date End Date Leeanna Wan MD [address] [place] [address] PCP - General Family Medicine 05/15/25 documented as of this encounter
== END 2025-08-01 10:07 | disposition home or self-care (01) ==
LOC: HO.HHCL 10:06
PROVIDERS: PCP General Practice; Visit Provider General Practice
DX: E66.812 Obesity, class 2 (principal); Z68.37 Body mass index [BMI] 37.0-37.9, adult; Z11.3 Encounter for screening for infections with a predominantly sexual mode of transmission; Z11.8 Encounter for screening for other infectious and parasitic diseases; Z11.4 Encounter for screening for human immunodeficiency virus [HIV]
CPT/HCPCS: 36415; 80053; 80061; 83036; 86592; 86803; 87389

== ENCOUNTER 2025-08-02 09:18 | Outpatient (REF) | payer MEDICAID, SELFPAY ==
--- OUTSIDE RECORDS SUMMARY | 2025-08-02 10:47 | XMS_ITS | Encounter Summary ---
Author Organization [facility] Address [address] [place] [phone] Phone Care Team Providers Care Taxi Dancer Name Role Phone Yanni Murphy MD Primary Care Provider Unavailabl e Encounter Details Date Type Department Care Team (Late st Contact Info) Description 06/22/2017 Documentation [facility] [place] [address] [place] [address] Family Medicine, Physician [address] [place], [place] 382131 Social History Tobacco Use Types Packs/Day Years [...] on filedocumented in this encounter Care Teams Taxi Dancer Relationship Specialty Start Date End Date Yanni Murphy MD PCP - General 07/02/17 12/31/22 documented as of this encounter
--- OUTSIDE RECORDS SUMMARY | 2025-08-02 10:48 | XMS_ITS | Clinical Summary ---
Author Organization [facility] Address [address] [place] [phone] Phone Care Team Providers Care Stunt Driver Name Role Phone Unavailable Primary Care Provider [...] nd well Other Family history of *Sudden /[place] under 55, Family history of Hyperlipidemia, Family [...] patient's age to complete this topic Insurance [facility] MED[facility] NON [facility]
--- OUTSIDE RECORDS SUMMARY | 2025-08-02 10:48 | XMS_ITS | Encounter Summary ---
Author Organization [facility] Address [address] [place] [address] Phone Care Team Providers Care Radiology Administrator Name Role Phone Yanni Murphy MD Primary Care Provider Unavailabl e Encounter Details Date Type Department Care Team (Late st Contact Info) Description 03/17/2016 Documentation [facility] [place] Family Medicine [address] [place] [address] Family Medicine, Physician [address] [place], [place] [phone] Social History Tobacco Use Types Packs/Day Years [...] on filedocumented in this encounter Care Teams Radiology Administrator Relationship Specialty Start Date End Date Yanni Murphy MD PCP - General 07/02/17 12/31/22 documented as of this encounter
--- OUTSIDE RECORDS SUMMARY | 2025-08-02 10:48 | XMS_ITS | Encounter Summary ---
Author Organization [facility] Address [address] [place] [phone] Phone Care Team Providers Care School Athletic Director Name Role Phone Yanni Murphy MD Primary Care Provider Unavailabl e Encounter Details Date Type Department Care Team (Late st Contact Info) Description 03/12/2016 Documentation [facility] [place] [address] [place] [address] Family Medicine, Physician [address], [place] [phone] Social History Tobacco Use Types Packs/Day Years [...] on filedocumented in this encounter Care Teams School Athletic Director Relationship Specialty Start Date End Date Yanni Murphy MD PCP - General 07/02/17 12/31/22 documented as of this encounter
--- OUTSIDE RECORDS SUMMARY | 2025-08-02 10:48 | XMS_ITS | Encounter Summary ---
Author Organization [facility] Address [address] [place] [phone] Phone Care Team Providers Care Reference Test Clerk Name Role Phone Yanni Murphy MD Primary Care Provider Unavailabl e Encounter Details Date Type Department Care Team (Late st Contact Info) Description 08/27/[address] [facility] [place] Family Medicine [address] [place] [address] Family Medicine, Physician [address] [place], [place] [phone] Social History Tobacco Use Types Packs/Day Years [...] on filedocumented in this encounter Care Teams Reference Test Clerk Relationship Specialty Start Date End Date Yanni Murphy MD PCP - General 07/02/17 12/31/22 documented as of this encounter
--- OUTSIDE RECORDS SUMMARY | 2025-08-02 10:48 | XMS_ITS | Encounter Summary ---
Author Organization [facility] Address [address] [place] [phone] Phone Care Team Providers Care Cable Layer Name Role Phone Yanni Murphy MD Primary Care Provider Unavailabl e Encounter Details Date Type Department Care Team (Late st Contact Info) Description 07/13/2016 Documentation [facility] [place] Family Medicine [address] [place] [address] Family Medicine, Physician [address] [phone] Social History Tobacco Use Types Packs/Day Years [...] on filedocumented in this encounter Care Teams Cable Layer Relationship Specialty Start Date End Date Yanni Murphy MD PCP - General 07/02/17 12/31/22 documented as of this encounter
--- OUTSIDE RECORDS SUMMARY | 2025-08-02 10:48 | XMS_ITS | Encounter Summary ---
Author Organization [facility] Address [address] [place] [phone] Phone Care Team Providers Care Stock Room Manager Name Role Phone Yanni Murphy MD Primary Care Provider Unavailabl e Encounter Details Date Type Department Care Team (Late st Contact Info) Description 08/26/2016 Documentation [facility] [place] Family Medicine [address] [place] [address] Family Medicine, Physician [address] [place], [place] [phone] Social History Tobacco Use Types Packs/Day Years [...] on filedocumented in this encounter Care Teams Stock Room Manager Relationship Specialty Start Date End Date Yanni Murphy MD PCP - General 07/02/17 12/31/22 documented as of this encounter
--- OUTSIDE RECORDS SUMMARY | 2025-08-02 10:48 | XMS_ITS | Encounter Summary ---
Author Organization [facility] Address [address] [place] [address] Phone Care Team Providers Care Hotel Room Attendant Name Role Phone Yanni Murphy MD Primary Care Provider Unavailabl e Encounter Details Date Type Department Care Team (Late st Contact Info) Description 07/08/2017 Conversion Encounter [facility] - [address] [address] Social History Tobacco Use Types Packs/Day Years [...] on filedocumented in this encounter Care Teams Hotel Room Attendant Relationship Specialty Start Date End Date Yanni Murphy MD PCP - General 07/02/17 12/31/22 documented as of this encounter
--- OUTSIDE RECORDS SUMMARY | 2025-08-02 10:48 | XMS_ITS | Encounter Summary ---
Author Organization [facility] Address [address] [place] [address] Phone Care Team Providers Care Recycling Technician Name Role Phone Yanni Murphy MD Primary Care Provider Unavailabl e Encounter Details Date Type Department Care Team (Late st Contact Info) Description 10/09/2013 Documentation [facility] [place] [address] [place] [address] Family Medicine, Physician [address], [place] [phone] Social History Tobacco Use Types Packs/Day Years [...] on filedocumented in this encounter Care Teams Recycling Technician Relationship Specialty Start Date End Date Yanni Murphy MD PCP - General 07/02/17 12/31/22 documented as of this encounter
[2025-08-02 22:24] LABS: CT PCR NOT DETECTED (Not Detect.); NG PCR NOT DETECTED (Not Detect.)
== END 2025-08-02 09:19 | disposition home or self-care (01) ==
LOC: HO.HHCL 09:18
PROVIDERS: PCP General Practice; Visit Provider General Practice
DX: Z11.3 Encounter for screening for infections with a predominantly sexual mode of transmission (principal)
CPT/HCPCS: 36415; 86592; 87491; 87591